=== PATIENT | male | born 1960 ===

== ENCOUNTER 2016-09-16 14:59 | Emergency (ER) | payer OTHER ==
[2016-09-16 15:07] VITALS: BMI 25.2
[2016-09-16 15:08] VITALS: O2SAT 100
[2016-09-16] MEDS ORDERED: Sodium Chloride 0.9% 1,000 ML IV ONE (15:26)
[2016-09-16] MEDS ORDERED: Iohexol 240 (50 ml) PO STA (15:26)
[2016-09-16 15:39] LABS: BASO % 0.5 % (0.0-2.0); EOS # 0.1 K/uL (0.0-0.7); EOS % 0.6 % (0.0-4.0); HEMATOCRIT 40.2 % (35.0-51.0); LYMPH # 1.2 K/uL (1.0-4.3); LYMPH % 14.5 % (20.0-40.0); MEAN CELL VOLUME 91.9 fL (80.0-94.0); MEAN CORPUSCULAR HEMOGLOBIN 30.6 pg (27.0-31.0); MEAN CORPUSCULAR HGB CONC 33.3 g/dL (33.0-37.0); RED CELL DISTRIBUTION WIDTH 13.1 % (11.5-14.5); WHITE BLOOD COUNT 8.5 K/uL (4.8-10.8)
[2016-09-16] MEDS ORDERED: Sodium Chloride 0.9% 1,000 ML ONE (15:39)
[2016-09-16] MEDS ORDERED: Iohexol 240 (50 ml) ONE (15:39)
[2016-09-16 15:45] LABS: URINE BILIRUBIN NEGATIVE (NEGATIVE); URINE BLOOD NEGATIVE (NEGATIVE); URINE COLOR Straw (YELLOW); URINE GLUCOSE (UA) NORMAL (Normal); URINE KETONE NEGATIVE (NEGATIVE); URINE LEUKOCYTE ESTERASE NEG Leu/uL (Negative); URINE PROTEIN NEGATIVE (NEGATIVE); URINE UROBILINOGEN NORMAL mg/dL (0.2-1.0)
--- NOTE | 2016-09-16 15:46 | C.PDOC ---
History Of Present Illness 56 y/o male presents to the ED for evaluation of generalized abdominal pain since last night. States that he woke up this morning with persistent pain, and had an episode of vomiting after eating breakfast, and drinking water. Pain is described as cramping and sharp in nature, and is not changed by position, cough, or deep breathing. Notes last BM was this morning at 5:00. Denies having similar symptoms in the past. Otherwise, denies any diarrhea, constipation, urinary symptoms, back pain, chest pain, fever, or chills. Time Seen by Provider: 09/16/16 15:09 Chief Complaint (Nursing): Abdominal Pain History Per: Patient History/Exam Limitations: no limitations Onset/Duration Of Symptoms: Days (1) Current Symptoms Are (Timing): Still Present Location Of Pain/Discomfort: Diffuse Radiation Of Pain To:: None Quality Of Discomfort: Cramping Associated Symptoms: Vomiting. denies: Fever, Chills, Diarrhea, Loss Of Appetite, Back Pain, Chest Pain, Constipation, Urinary Symptoms Exacerbating Factors: None Alleviating Factors: None Last Bowel Movement: Today Recent travel outside of the [place]: No Additional History Per: Patient Past Medical History Reviewed: Historical Data, Nursing Documentation, Vital Signs Vital Signs: Last Vital Signs Temp 98.2 F 09/16/16 15:07 Pulse 57 L 09/16/16 15:07 Resp 18 09/16/16 15:07 BP 134/77 09/16/16 15:07 Pulse Ox 100 09/16/16 15:50 Family History: States: Unknown Family Hx - Social History Hx Alcohol Use: No Hx Substance Use: No - Immunization History Hx Tetanus Toxoid Vaccination: Yes Hx Influenza Vaccination: No Hx Pneumococcal Vaccination: No Review Of Systems Except As Marked, All Systems Reviewed And Found Negative. Constitutional: Negative for: Fever, Chills Cardiovascular: Negative for: Chest Pain Gastrointestinal: Positive for: Nausea, Vomiting, Abdominal Pain. Negative for : Diarrhea, Constipation, Hematemesis Genitourinary: Negative for: Dysuria, Frequency, Incontinence, Hematuria Musculoskeletal: Negative for: Back Pain Skin: Negative for: Rash Physical Exam - Physical Exam Appears: Non-toxic, No Acute Distress Skin: Normal Color, Warm, Dry Head: Atraumatic, Normacephalic Eye(s): bilateral: Normal Inspection Oral Mucosa: Moist Neck: Normal ROM, Supple Cardiovascular: Rhythm Regular, No Murmur Respiratory: Normal Breath Sounds, No Rales, No Rhonchi, No Wheezing Gastrointestinal/Abdominal: Bowel Sounds (Normal), Soft, Tenderness (mild epigastric, LUQ), No Distention, No Guarding, No Rebound Back: Normal Inspection Extremity: Bilateral: Atraumatic, Normal ROM Neurological/Psych: Oriented x3, Normal Speech, Normal Cognition ED Course And Treatment - Laboratory Results Result Diagrams: 09/16/16 15:36 09/16/16 15:36 Lab Interpretation: No Acute Changes O2 Sat by Pulse Oximetry: 100 (RA) Pulse Ox Interpretation: Normal - CT Scan/US Abdomen and Pelvis Other Rad Studies (CT/US): Read By Radiologist, Radiology Report Reviewed CT/US Interpretation: Accession No. : [id number]. Patient Name / ID : GISEL BOOTH / [id number]. Exam Date : 09/16/2016 17:13:41 ( Approved ). Study Comment : Sex / Age : M / 56Y. Creator : JAIR TURNER MD. Dictator : JAIR TURNER MD. Email Operations Manager : Retail Loan Officer : JAIR TURNER MD. Approver2 : Report Date : 09/16/2016 17:44:14. My Comment : . PROCEDURE: CT Abdomen and Pelvis with contrast. HISTORY: Abdominal pain. COMPARISON: None. TECHNIQUE: CT scan of the abdomen and pelvis was performed after intravenous administration of contrast. Oral contrast was administered. Coronal and sagittal reformatted images were obtained. Contrast dose: 100 mL Omnipaque 300. Radiation dose: Total exam DLP = 2048.41 mGy-cm. This CT exam was performed using one or more of the following dose reduction techniques: Automated exposure control, adjustment of the mA and/or kV according to patient size, and/ or use of iterative reconstruction technique. FINDINGS: LOWER THORAX: There is dependent atelectasis in the lung bases. LIVER: The liver is normal in size and there is homogeneous enhancement. No gross lesion or ductal dilatation. GALLBLADDER AND BILE DUCTS: No calcified gallstones. PANCREAS: The pancreas is normal in size and there is homogeneous enhancement. No gross lesion or ductal dilatation. SPLEEN: The spleen is normal in size and appearance. ADRENALS: Both adrenal glands are normal in size without discrete nodule. KIDNEYS AND URETERS: Both kidneys are normal in size. There is a 4 mm nonobstructing stone in the lower pole of the left kidney. No hydronephrosis. VASCULATURE: Unremarkable. No aortic aneurysm. BOWEL: The small bowel loops are normal in caliber. APPENDIX: The appendix is not distinctly visualized however there are no inflammatory changes in the right lower quadrant. PERITONEUM: No free fluid. No free air. LYMPH NODES: No enlarged lymph nodes. BLADDER: There is apparent mild mural thickening of the anterior bladder wall. REPRODUCTIVE: The prostate gland is normal in size. BONES: No acute fracture. Within normal limits for the patient's age. OTHER FINDINGS: There are bilateral small fat containing inguinal hernias. IMPRESSION: 1. No acute abdominal or pelvic abnormality. The appendix is not visualized however there are no inflammatory changes in the right lower quadrant. 2. Apparent mild mural thickening of the anterior urinary bladder wall could be related to underdistention however cystitis cannot be excluded. Please correlate with urinalysis. Progress Note: Plan: blood work, urinalysis, Abd & pelvis CT. Patient was given IV fluids, Zofran, and Iohexol. On re-eval, patient reports feeling better, with improvement of pain. Abdomen remains soft. No acute distress. Reevaluation Time: 18:16 Reassessment Condition: Improved Disposition Counseled Patient/Family Regarding: Studies Performed, Diagnosis, Need For Followup - Disposition Referrals: [facility] [Outside] Disposition: HOME/ ROUTINE Disposition Time: 18:16 Condition: IMPROVED Additional Instructions: Take Pepcid AC twice a day for pain if needed. Instructions: Abdominal Pain (ED) Forms: [employer] (Georgian) Print Language: EGYPTIAN - Clinical Impression Clinical Impression: Abdominal pain - Scribe Statement The provider has reviewed the documentation as recorded by the Ligiaibanali Diego All medical record entries made by the Ligiaibanali were at my direction and personally dictated by me. I have reviewed the chart and agree that the record accurately reflects my personal performance of the history, physical exam, medical decision making, and the department course for this patient. I have also personally directed, reviewed, and agree with the discharge instructions and disposition.
[2016-09-16 15:48] LABS: CHLORIDE 100 mmol/L (98-107)
[2016-09-16 15:49] LABS: POTASSIUM 3.7 mmol/L (3.6-5.2); SODIUM 139 mmol/L (132-148)
[2016-09-16 15:51] LABS: ALB/GLOB RATIO 1.4 (1.0-2.1); BILIRUBIN,TOTAL 0.8 mg/dL (0.2-1.3); CARBON DIOXIDE 28 mmol/L (22-30); GFR AFRICAN-AMERICAN > 60; TOTAL PROTEIN 6.6 g/dL (6.3-8.3)
[2016-09-16 15:52] LABS: ALKALINE PHOSPHATASE 64 U/L (38-126); ALT/SGPT 37 U/L (21-72); AST/SGOT 24 U/L (17-59); BLOOD UREA NITROGEN 11 mg/dL (9-20); CALCIUM 8.9 mg/dl (8.6-10.4); GLUCOSE,RANDOM 83 mg/dL (75-110)
[2016-09-16] MEDS ORDERED: Iohexol 300 100 ML IJ ONE (16:59)
--- NOTE | 2016-09-16 17:46 | CT ---
PROCEDURE: CT Abdomen and Pelvis with contrast HISTORY: Abdominal pain COMPARISON: None. TECHNIQUE: CT scan of the abdomen and pelvis was performed after intravenous administration of contrast. Oral contrast was administered. Coronal and sagittal reformatted images were obtained. Contrast dose: 100 mL Omnipaque 300 Radiation dose: Total exam DLP = 2048.41 mGy-cm. This CT exam was performed using one or more of the following dose reduction techniques: Automated exposure control, adjustment of the mA and/or kV according to patient size, and/or use of iterative reconstruction technique. FINDINGS: LOWER THORAX: There is dependent atelectasis in the lung bases. LIVER: The liver is normal in size and there is homogeneous enhancement. No gross lesion or ductal dilatation. GALLBLADDER AND BILE DUCTS: No calcified gallstones. PANCREAS: The pancreas is normal in size and there is homogeneous enhancement. No gross lesion or ductal dilatation. SPLEEN: The spleen is normal in size and appearance. ADRENALS: Both adrenal glands are normal in size without discrete nodule. KIDNEYS AND URETERS: Both kidneys are normal in size. There is a 4 mm nonobstructing stone in the lower pole of the left kidney. No hydronephrosis. VASCULATURE: Unremarkable. No aortic aneurysm. BOWEL: The small bowel loops are normal in caliber. APPENDIX: The appendix is not distinctly visualized however there are no inflammatory changes in the right lower quadrant. PERITONEUM: No free fluid. No free air. LYMPH NODES: No enlarged lymph nodes. BLADDER: There is apparent mild mural thickening of the anterior bladder wall. REPRODUCTIVE: The prostate gland is normal in size. BONES: No acute fracture. Within normal limits for the patient's age. OTHER FINDINGS: There are bilateral small fat containing inguinal hernias. IMPRESSION: 1. No acute abdominal or pelvic abnormality. The appendix is not visualized however there are no inflammatory changes in the right lower quadrant. 2. Apparent mild mural thickening of the anterior urinary bladder wall could be related to underdistention however cystitis cannot be excluded. Please correlate with urinalysis.
[2016-09-16 18:25] VITALS: BP 112/69; PULSE 53; RESP 20; TEMP 98.3
== END 2016-09-16 18:23 | disposition home or self-care (01) ==
LOC: C.ER 14:59
DX: R10.9 Unspecified abdominal pain (principal)
CPT/HCPCS: 74177; 80053; 81001; 83690; 85025; 96361; 96374; 99284; J2405; J7040; Q9966; Q9967